=== PATIENT | female | born 1990 | race Caucasian/White ===

== ENCOUNTER 2018-12-27 06:52 | Outpatient (CLI) | END 2018-12-27 06:53 | disposition home or self-care (01) | LOC: LAB 06:52 | PROVIDERS: ATTEND Family Medicine | DX: K51.30 Ulcerative (chronic) rectosigmoiditis without complications (principal) | CPT/HCPCS: 36415; 82306; 85651; 86140 ==

== ENCOUNTER 2019-03-16 07:02 | Outpatient (CLI) | END 2019-03-16 07:03 | disposition home or self-care (01) | LOC: LAB 07:02 | PROVIDERS: ATTEND Physician Assistant Medical | DX: E03.9 Hypothyroidism, unspecified (principal) | CPT/HCPCS: 36415; 84439; 84443; 84481 ==